=== PATIENT | male | born 1970 | race Caucasian/White ===

== ENCOUNTER 2016-10-01 15:18 | Emergency (ER) | payer MEDICAID ==
[~2016-10-01] VITALS: Ht 185.4 cm; Wt 78.5 kg
[2016-10-01 15:22] VITALS: Ht 185.4 cm; Wt 78.5 kg
[2016-10-01] MEDS ORDERED: ALBUTEROL 0.083% (NEB) 2.5 MG/3 ML AMP HHN STA (16:01)
--- NOTE | 2016-10-01 16:17 | ERD ---
ER Documentation Chief Complaint Date/Time DATE: 10/01/16 TIME: 16:16 Chief Complaint sob x 2 weeks HPI This is a 45-year-old male that presents to the ER with a cough for the last 2 weeks. Cough is productive and constant, worse at night. Patient states that cough has been worsening and he is now experiencing shortness of breath. He denies any fevers or chills. His roommate has had a cough for a long time. He does not have a sore throat or ear pain. He has not traveled anywhere. He denies any chest pain. ROS 12 point review of systems was done, all negative except per HPI. Medications Home Meds Active Scripts Fexofenadine Hcl* (Lena*) 180 Mg Tablet, 180 MG PO DAILY, #30 TAB Prov:PATTILUIS Brunner 10/01/16 Albuterol Sulfate* (Proair HFA*) 8.5 Gm Hfa.aer.ad, 2 PUFF INH Q4, #1 INHALER Prov:PATTILUIS Burnner 10/01/16 Dextromethorphan Hb-Promethazine Hcl (Promethazine DM Syrup) 473 Ml Syrup, 10 ML PO Q6H Y for COUGH, #4 OZ Prov:NOAH ARMSTRONGLALI Brunner 10/01/16 Azithromycin* (Zithromax*) 250 Mg Tablet, 250 MG PO .ZPACK DIRECTED, #6 TAB TAKE 500 MG (2 TABS) THE FIRST DAY THEN 250 MG (1 TAB) DAYS 2-5 Prov:LUIS ARMSTRONG Myesha 10/01/16 Allergies Allergies: Coded Allergies: No Known Allergy (Unverified , 10/01/16) PMhx/Soc Medical and Surgical Hx: pt denies Medical Hx, pt denies Surgical Hx Hx Alcohol Use: Yes Hx Substance Use: No Hx Tobacco Use: No Smoking Status: Never smoker Physical Exam Vitals Vital Signs Date Time Temp Pulse Resp B/P Pulse Ox O2 Delivery O2 Flow Rate FiO2 10/01/16 16:34 98 22 95 21 10/01/16 15:22 98.8 110 26 123/78 95 Physical Exam GENERAL: The patient is well-developed, well-nourished, in no acute distress. NECK: Cervical spine is non tender with no step off. Supple, no nuchal rigidity HEENT: Atraumatic. Pupils equal, round and reactive to light. Extraocular muscles are grossly intact. Conjunctivae pink, no discharge. Bilateral tympanic membranes are clear with no evidence of erythema, effusion or dulling of the light reflex. Tonsilar erythema with no exudates or uvular deviation. Clear rhinorrhea. RESPIRATORY: Clear to auscultation bilaterally. There are no rales, wheezes or rhonchi. HEART: Regular rate and rhythm. No murmurs, clicks, rubs or gallops. EXTREMITIES: No clubbing or cyanosis. Full range of motion. Grossly neurovascularly intact. NEUROLOGIC: Alert and oriented. Cranial nerves II through XII are intact. SKIN: There is no rash. The skin is warm and dry. Results 24 hrs Current Medications Medications (Trade) Dose Ordered Sig/[place] Route PRN Reason Start Time Stop Time Status Last Admin Dose Admin Albuterol (Proventil 0.083% (Neb)) 5 mg ONCE STAT HHN 10/01/16 16:01 10/01/16 16:05 DC 10/01/16 16:32 Ipratropium Ama (Atrovent 0.02% (Neb)) 0.5 mg ONCE ONCE HHN 10/01/16 16:30 10/01/16 16:31 DC 10/01/16 16:33 Procedures/MDM EKG was done at [address] elevation or T-wave inversion. This EKG was read and signed by Dr. Oneal Nebulizing treatment was ordered with albuterol and ipratropium upon reexamination patient's wheezing was improved. He felt significantly better. Differential diagnosis includes but is not limited to; Viral URI, allergic rhinitis, bronchitis, pertussis,pneumonia. This is likely bronchitis. Patient will be treated with azithromycin given times severity of symptoms. Clinical suspicion for pneumonia is low as patient appears well, is not hypoxic or in any respiratory distress. Additionally, patients physical examination is benign. Plan was discussed with patient they understand and agree. Patient needs to follow up with PCP in 1-2 days or return to ER sooner if symptoms worsen. Departure Diagnosis: Primary Impression: Bronchitis Condition: Stable LUIS ARMSTRONG Oct 01, 2016 16:17
[2016-10-01] MEDS ORDERED: IPRATROPIUM (NEB) 0.5 MG/2.5 ML AMP HHN ONE (16:30)
--- NOTE | 2016-10-01 16:32 | RADRPT ---
PROCEDURE: XR Chest. CLINICAL INDICATION: Cough and shortness of breath. TECHNIQUE: Single frontal view. COMPARISON: None. FINDINGS: The lungs are clear. The heart size is normal. There is no pleural effusion. There is no pneumothorax. IMPRESSION: 1. Normal chest radiograph. RPTAT: QQ .Bill Brian MD, MD Date Time Electronically viewed and signed by .Bill Brian MD, on 10/01/2016 16:32 .R/
[2016-10-01] MEDS ORDERED: AZIT250T94 PO (17:13)
[2016-10-01] MEDS ORDERED: ALBU8.5H3 INH (17:14)
[2016-10-01] MEDS ORDERED: D-ME473S18 PO (17:14)
[2016-10-01] MEDS ORDERED: FEXO180T61 PO (17:15)
[2016-10-01 17:32] VITALS: PULSE 98; RESP 20; TEMP 98.5
== END 2016-10-01 17:35 | disposition home or self-care (01) ==
LOC: FTE 15:18
DX: J20.9 Acute bronchitis, unspecified (principal)
CPT/HCPCS: 71010; 94664; Z7610; 93005